=== PATIENT | male | born 1995 | race Caucasian/White ===

== ENCOUNTER 2019-07-05 03:15 | Emergency (ER) | payer MEDICAID ==
[~2019-07-05] VITALS: Ht 170.2 cm; Wt 77.1 kg
[2019-07-05 03:15] VITALS: BP 133/103
--- NOTE | 2019-07-05 03:15 | NUR ---
TO BED # 05 BROUGHT IN BY AMBULANCE WITH C/O ANXIETY, FAMILY WOKE UP , HES SHAKING, NOT TALKING, AND ACTING INAPPROPRIATE, ANXIOUS, DISORIENTED, NAUSEATED, HE WAS ADMITTED IN [facility] 3 MONTHS AGO,ON HOLD.
[2019-07-05] MEDS ORDERED: LORazepam 2 MG/ML VIAL IM ONE (03:20)
--- NOTE | 2019-07-05 03:25 | NUR ---
PT PRESENTS WITHOUT ANY FACIAL EXPRESSION, STARING AT STAFF. NOT ANSWERING QUESTIONS. NOT RESPONSIVE TO FATHER AT BEDSIDE. ONLY VERBALIZED "NO" WHEN ASKED IF HE HAD ANY PAIN. PT SITTING UP IN BED WITH ARMS FLEXED. ERMD AWARE OF PT STATUS.
[2019-07-05] MEDS ORDERED: HALOPERIDOL IM 5 MG/ML VIAL IM ONE (03:35)
--- NOTE | 2019-07-05 04:00 | NUR ---
PT SITTING UP IN BED WITH EYES OPEN, STARRING AT STAFF. PT STILL REFUSING TO ANSWER QUESTIONS. PT REFUSING BLOOD WORK.
[2019-07-05] MEDS ORDERED: diphenhydrAMINE 50 MG/ML VIAL IM ONE (04:10)
--- NOTE | 2019-07-05 04:40 | NUR ---
PT A&O X4. GCS 15. PT STATED "I WANT TO LEAVE, YOU CAN'T MAKE ME STAY." PT MADE AWARE OF RISKS AND BENEFITS OF LEAVING THE HOSPITAL. PT REFUSED TO SIGN AMA FORM. PT STATES "I DON'T NEED TO SIGN ANYTHING." ERMD MADE AWARE.
--- NOTE | 2019-07-05 04:41 | NUR ---
PT FAMILY MEMBER MADE AWARE TO WATCH PT OVERNIGHT AND TO RETURN TO ER IF CONDITION WORSENS.
--- NOTE | 2019-07-05 04:42 | NUR ---
PATIENT ELOPED FROM FACILITY. DISCHARGE INSTRUCTIONS NOT GIVEN TO PATIENT. DR. LINCOLN NOTIFIED.
== END 2019-07-05 04:42 | disposition left against medical advice (07) ==
LOC: MED 03:15
DX: F41.9 Anxiety disorder, unspecified (principal); F98.9 Unspecified behavioral and emotional disorders with onset usually occurring in childhood and adolescence
CPT/HCPCS: 96372; 99283; J1200; J1630; J2060